=== PATIENT | male | born 1990 | race Caucasian/White ===

== ENCOUNTER 2016-10-23 10:25 | Emergency (ER) | payer OTHER ==
[~2016-10-23] VITALS: Ht 185.4 cm; Wt 82.6 kg
[2016-10-23 10:31] VITALS: BP 150/89; TEMP 36.7; Ht 185.4 cm; Wt 82.6 kg
--- NOTE | 2016-10-23 10:38 | EMERGENCY ROOM VISIT NOTE ---
History Report prepared by Scribe: Yana Valle Under the Supervision of: Dr. Yuni Franco M.D. First contact with patient: 10:31 Chief Complaint: SHOULDER DISLOCATION Stated Complaint: SHOULDER DISLOCATION History of Present Illness The patient is a 26 year old male who presents to the Emergency Room with complaints of and episode of right shoulder dislocation occurring just prior to arrival. The patient sneezed which caused his shoulder to pop out. The patient has had 2 previous surgeries for recurrent shoulder dislocations. Source of History: patient Onset: just prior to arrival Position: shoulder (right) Timing: other (episode) Review of Systems See HPI for pertinent positives & negatives. A total of 6 systems reviewed and were otherwise negative. Past Medical & Surgical no active medical problems. Family History no pertinent family history stated. Social History Smoking Status: Never Smoker Marital Status: single Occupation Status: student Current/Historical Medications No Active Prescriptions or Reported Meds Allergies Coded Allergies: No Known Allergies (Unverified , 10/23/16) Physical Exam Vital Signs Date Time Temp Pulse Resp B/P (MAP) Pulse Ox O2 Delivery O2 Flow Rate FiO2 10/23/16 11:37 98 16 96 10/23/16 10:31 36.7 116 20 150/89 95 Room Air Physical Exam Vital signs reviewed. General: Well-appearing male, in significant discomfort. Cardiovascular: Regular rate and rhythm, no extra sounds. Pulmonary: Clear to auscultation bilaterally, normal work of breathing. Abdomen: Soft, nontender, nondistended, positive bowel sounds. Musculoskeletal: Atraumatic, no peripheral edema. Deformity visualized over right shoulder. Neurologic: Patient awake alert and oriented x 3. Neurovascular intact to right shoulder. Skin: Warm, dry, no rash Medical Decision & Procedures ER Provider Diagnostic Interpretation: Radiology results as stated below per my review and radiologist interpretation: RIGHT SHOULDER MIN 2 VIEWS ROUTINE DISCUSSION: Postoperative changes to the glenoid. Several surgical anchors are present. Grade 1 separation acromioclavicular joint of uncertain age. There is no evidence for soft tissue swelling. IMPRESSION: 1. Postoperative changes to the glenoid. 2. No acute bony abnormality. 3. Grade 1 separation right acromioclavicular joint of uncertain age. The above report was generated using voice recognition software. It may contain grammatical, syntax or spelling errors. Electronically signed by: Alphonso Shay M.D. Procedure Anterior Shoulder Dislocation Reduction Indication: Right shoulder reduction Verbal consent obtained. Risks and benefits were explained with the usual customary discussion. A time out was taken. Neurovascular examination before the procedure was intact. The right shoulder glenohumeral dislocation was reduced by placing the patient prone and applying gentle downward inline traction on the humerus, with the elbow flexed at 90 degrees, while scapula manipulation was applied. This resulted in an easy reduction without complication. Neurovascular examination after the procedure was again intact. The patient had significant pain relief and tolerated the procedure well. Avinash Ayala PA-C assisted. Post reduction XR reveals shoulder in good position ED Course 1034: Past medical records reviewed. The patient was evaluated in room C6. A complete history and physical examination was performed. 1127: I reevaluated the patient and updated him on his results. 1132: Upon reevaluation, the patient appeared to have improvement of his symptoms. I discussed findings with the patient. He verbalized agreement of the treatment plan. The patient was discharged home. Medical Decision Differential diagnosis: Etiologies such as fracture, dislocation, neurovascular compromise, compartment syndrome, soft tissue injury, as well as others were entertained. This patient was evaluated and appeared to be in significant discomfort. Patient had been medicated with 200 g of fentanyl prior to arrival. He was placed in the prone position and the shoulder was reduced without difficulty. Please see my procedure note above. Postreduction film is read as above without acute fracture in the shoulder in good alignment. The patient was placed in a sling. He is familiar with discharge instructions as this is a recurrent issue. He'll follow-up with orthopedic surgery upon return home. He declined the need for any analgesics. He was discharged in care of his family. Medication Reconcilliation Current Medication List: was personally reviewed by me Blood Pressure Screening Patient's blood pressure: Elevated blood pressure Blood pressure disposition: Elevated BP felt to be situational Impression Primary Impression: Recurrent dislocation, right shoulder Scribe Attestation The scribe's documentation has been prepared under my direction and personally reviewed by me in its entirety. I confirm that the note above accurately reflects all work, treatment, procedures, and medical decision making performed by me. Departure Information Dispostion Home / Self-Care Prescriptions No Active Prescriptions or Reported Meds Referrals No Doctor, Assigned (PCP) Forms HOME CARE DOCUMENTATION FORM, IMPORTANT VISIT INFORMATION, WORK / SCHOOL INSTRUCTIONS Patient Instructions My [facility] Additional Instructions Diagnosis: Right shoulder dislocation Please wear sling until you are reevaluated by orthopedics. See orthopedics within the next 7-10 days. You may remove the sling to shower. Ibuprofen 600 mg every 6 hours as needed for pain with food. Ice to the shoulder intermittently for the next 24 hours. Return to the emergency department for worsening of symptoms or any medical concerns.
--- NOTE | 2016-10-23 11:19 | DIAGNOSTIC IMAGING REPORT ---
RIGHT SHOULDER MIN 2 VIEWS ROUTINE CLINICAL HISTORY: R shoulder dislocation Right trauma COMPARISON: None. DISCUSSION: Postoperative changes to the glenoid. Several surgical anchors are present. Grade 1 separation acromioclavicular joint of uncertain age. There is no evidence for soft tissue swelling. IMPRESSION: 1. Postoperative changes to the glenoid. 2. No acute bony abnormality. 3. Grade 1 separation right acromioclavicular joint of uncertain age. The above report was generated using voice recognition software. It may contain grammatical, syntax or spelling errors. Electronically signed by: Alphonso Shay M.D. 10/23/2016 11:17 AM Dictated Date/Time: 10/23/2016 11:15 AM
[2016-10-23 11:37] VITALS: PULSE 98; O2SAT 96
== END 2016-10-23 11:38 | disposition home or self-care (01) ==
LOC: EDBD 10:25 → C.EDC 10:30
DX: M24.411 Recurrent dislocation, right shoulder (principal)